=== PATIENT | female | born 1935 | race Caucasian/White ===

== ENCOUNTER 2017-06-22 19:15 | Inpatient (IN) | payer OTHER ==
[~2017-06-22] VITALS: Ht 165.1 cm; Wt 59.0 kg
[~2017-06-22 19:15] MED LIST: ACETAMINOPHEN325 M1 PO; ACYCLOVIR800 MG PO; AMLODIPINE BESYL5 MG PO; LOSARTAN POTAS100 MG PO; SYNTHROID50 MCG PO
[2017-06-22 20:22] LABS: BASOPHIL COUNT 0.1 K/uL (0-0.1); EOSINOPHIL (%) 0.1 % (0-5); IMMATURE GRANULOCYTE (%) 0.3 % (0.0-0.7); INSTRUMENT ABS NEUTROPHIL CT 11.9 K/uL; LYMPHOCYTE COUNT 0.9 K/uL (1.0-2.8); MCH 31.9 PG (29.0-34.0); MCV 91.3 FL (83-99); MEAN PLAT.VOLUME 10.3 uM^3 (9.5-12.4); MONOCYTE (%) 4.9 % (3-12); MONOCYTE COUNT 0.7 K/uL (0-0.8); NEUTROPHIL (%) 87.8 % (45-76); NEUTROPHIL COUNT 11.9 K/uL (1.8-6.4); PLATELET COUNT 291 K/uL (156-360); RBC DIS.WIDTH-CV 12.7 % (11.8-14.6); RBC DIS.WIDTH-SD 42.5 % (39-53); RED BLOOD COUNT 5.26 M/uL (3.80-5.20); WHITE BLOOD COUNT 13.6 K/uL (4.1-10.2)
[2017-06-22 20:26] LABS: CHLORIDE 101 mEq/L (99-109); POTASSIUM 4.4 mEq/L (3.7-5.4); SODIUM 134 mEq/L (136-147)
[2017-06-22 20:27] LABS: MAGNESIUM 2.1 mg/dL (1.3-2.7)
[2017-06-22 20:28] LABS: GLUCOSE 154 mg/dL (70-99)
[2017-06-22 20:29] LABS: ANION GAP 13 MEQ/L (2-14)
[2017-06-22 20:32] LABS: GFR ESTIMATE (CALCULATED) > 59 mL/min/
[2017-06-22 20:33] LABS: UREA NITROGEN (BUN) 13 mg/dL (9-23)
[2017-06-22 20:39] LABS: TROP-I INTERPRETATION NEGATIVE; TROPONIN-I < 0.01 ng/mL (0.0-0.30)
[2017-06-22] MEDS ORDERED: CELEBREX100 MG PO (21:13)
[2017-06-22] MEDS ORDERED: ASPIR 8181 M1 PO (21:13)
[2017-06-22] MEDS ORDERED: COLON CLEANSE (21:15)
[2017-06-22] MEDS ORDERED: DAILY VALUE1 EACH PO (21:15)
[2017-06-22] MEDS ORDERED: BIOTIN1 MG PO (21:16)
[2017-06-22] MEDS ORDERED: ASCORBIC ACID100 MG PO (21:16)
[2017-06-22] MEDS ORDERED: FISH OIL 1,0001 EAC7 PO (21:16)
[2017-06-22 22:30] VITALS: BP 132/67
[2017-06-23 04:15] VITALS: BP 116/69
[2017-06-23 07:41] VITALS: BP 98/55
[2017-06-23 11:07] VITALS: BP 120/74
[2017-06-23 16:08] VITALS: BP 118/73
[2017-06-23 19:20] VITALS: BP 110/67
[2017-06-24] VITALS (7 sets, daily range): BP systolic 104–151; BP diastolic 61–72
[2017-06-25 04:09] VITALS: BP 158/80
[2017-06-25 06:56] VITALS: BP 122/81
[2017-06-25 09:30] LABS: HEMATOCRIT 48.5 % (36.0-46.0); MCHC 33.4 G/DL (30.0-36.0); MCV 92.7 FL (83-99); MEAN PLAT.VOLUME 9.7 uM^3 (9.5-12.4); PLATELET COUNT 303 K/uL (156-360); RBC DIS.WIDTH-CV 12.1 % (11.8-14.6); RBC DIS.WIDTH-SD 41.7 % (39-53); RED BLOOD COUNT 5.23 M/uL (3.80-5.20); WHITE BLOOD COUNT 8.9 K/uL (4.1-10.2)
[2017-06-25 10:02] LABS: ANION GAP 8 MEQ/L (2-14); CHLORIDE 99 MEQ/L (99-109); GFR ESTIMATE (CALCULATED) > 59 mL/min/; GLUCOSE 137 mg/dL (70-99); POTASSIUM 4.5 MEQ/L (3.7-5.4); SAMPLE HEMOLYSIS CHECK 0; SAMPLE ICTERIC CHECK 0; SAMPLE LIPEMIA CHECK 0; SODIUM 132 MEQ/L (136-147); UREA NITROGEN (BUN) 15 mg/dL (9-23)
[2017-06-25 10:59] LABS: DIGOXIN 2.7 ng/mL (0.8-2.0)
[2017-06-25 11:17] VITALS: BP 102/63
[2017-06-25] MEDS ORDERED: ELIQUIS2.5 MG PO (13:01)
[2017-06-25] MEDS ORDERED: Tylenol Extra Streng PO (13:03)
[2017-06-25] MEDS ORDERED: LOPRESSOR25 MG PO (13:10)
[2017-06-25 15:14] VITALS: BP 105/60
== END 2017-06-25 16:38 | DRG 310 ==
LOC: EME 19:15 → EDOF 21:21 → 4EAST 21:21 → ENRESERV 21:32 → 4EAST 22:26 → ENPENDDIS 06-25 → 4EAST 06-25 16:38
PROVIDERS: Emergency Medicine; Internal Medicine Cardiovascular Disease
DX: I48.91 Unspecified atrial fibrillation (principal); W01.0XXA Fall on same level from slipping, tripping and stumbling without subsequent striking against object, initial encounter; E03.9 Hypothyroidism, unspecified; M41.9 Scoliosis, unspecified; I10 Essential (primary) hypertension; S00.531A Contusion of lip, initial encounter; Y92.009 Unspecified place in unspecified non-institutional (private) residence as the place of occurrence of the external cause; Z86.73 Personal history of transient ischemic attack (TIA), and cerebral infarction without residual deficits; Z90.2 Acquired absence of lung [part of]; S62.615A Displaced fracture of proximal phalanx of left ring finger, initial encounter for closed fracture; M19.90 Unspecified osteoarthritis, unspecified site; I07.1 Rheumatic tricuspid insufficiency
CPT/HCPCS: 70450; 70486; 71010; 73130; 80048; 80162; 83735; 83880; 84439; 84443; 84484; 85025; 85027; 90686; 93005; 93306; 99281; 99285; J1160; J1650; J3475

== ENCOUNTER 2017-08-05 10:27 | Inpatient (IN) | payer OTHER ==
[~2017-08-05] VITALS: Ht 162.6 cm; Wt 57.8 kg
[~2017-08-05 10:27] MED LIST changes: +ASCORBIC ACID100 MG PO; +ASPIR 8181 M1 PO; +BIOTIN1 MG PO; +CELEBREX100 MG PO; +COLON CLEANSE; +DAILY VALUE1 EACH PO; +ELIQUIS2.5 MG PO; +FISH OIL 1,0001 EAC7 PO; +LOPRESSOR25 MG PO; +Tylenol Extra Streng PO
[2017-08-05 10:53] LABS: BASOPHIL COUNT 0.1 K/uL (0-0.1); EOSINOPHIL (%) 5.9 % (0-5); EOSINOPHIL COUNT 0.5 K/uL (0-0.3); HEMATOCRIT 52.7 % (36.0-46.0); IMMATURE GRANULOCYTE (%) 0.7 % (0.0-0.7); IMMATURE GRANULOCYTE COUNT 0.1 K/uL; INSTRUMENT ABS NEUTROPHIL CT 5.2 K/uL; LYMPHOCYTE COUNT 1.7 K/uL (1.0-2.8); MCH 31.6 PG (29.0-34.0); MCHC 33.4 G/DL (30.0-36.0); MCV 94.6 FL (83-99); MEAN PLAT.VOLUME 10.3 uM^3 (9.5-12.4); MONOCYTE (%) 9.5 % (3-12); MONOCYTE COUNT 0.8 K/uL (0-0.8); NEUTROPHIL COUNT 5.2 K/uL (1.8-6.4); PLATELET COUNT 356 K/uL (156-360); RBC DIS.WIDTH-SD 45.5 % (39-53); RED BLOOD COUNT 5.57 M/uL (3.80-5.20); WHITE BLOOD COUNT 8.3 K/uL (4.1-10.2)
[2017-08-05 10:58] LABS: INTER. NORMALIZED RATIO 1.3; PROTHROMBIN TIME 14.6 SEC (10.2-12.9)
[2017-08-05 11:00] LABS: PTT 34.4 SEC (25-37)
[2017-08-05 11:04] LABS: AMYLASE 51 IU/L (1-118); CHLORIDE 106 mEq/L (99-109); POTASSIUM 4.3 mEq/L (3.7-5.4); SODIUM 143 mEq/L (136-147)
[2017-08-05 11:06] LABS: GLUCOSE 172 mg/dL (70-99)
[2017-08-05 11:07] LABS: ANION GAP 12 MEQ/L (2-14)
[2017-08-05 11:09] LABS: SERUM ETHYL ALCOHOL < 10 mg/dL
[2017-08-05 11:10] LABS: GFR ESTIMATE (CALCULATED) > 59 mL/min/; UREA NITROGEN (BUN) 11 mg/dL (9-23)
[2017-08-05 11:13] LABS: LIPASE 16 U/L (1.0-51.0)
[2017-08-05 11:19] LABS: TROP-I INTERPRETATION NEGATIVE; TROPONIN-I 0.04 ng/mL (0.0-0.30)
[2017-08-05 12:04] LABS: DIGOXIN 1.9 ng/mL (0.8-2.0)
[2017-08-05] MEDS ORDERED: BENADRYL ALLERG25 MG PO (14:41)
[2017-08-05] MEDS ORDERED: MEDPASS PO (14:43)
[2017-08-05] MEDS ORDERED: DIGOXIN125 MCG PO (14:45)
[2017-08-05 14:46] LABS: ADD MIUA? YES; BILIRUBIN NEGATIVE; BLOOD NEGATIVE; COLOR YELLOW ((YELLOW)); GLUCOSE (STRIP) NEGATIVE; KETONES 5; LEUKOCYTES SMALL; NITRITE NEGATIVE; PROTEIN (STRIP) NEGATIVE; UROBILINOGEN 0.2 MG/DL (0.2-1.0)
[2017-08-05] MEDS ORDERED: DIGOXIN250 MCG PO (14:46)
[2017-08-05 14:50] LABS: BACTERIA RARE /HPF; EPITHELIAL CELLS RARE /HPF; MUCUS TRACE /LPF; RED BLOOD CELLS 0-5 /HPF (0-5); UCUL ADDED? NO; WHITE BLOOD CELLS 0-5 /HPF (0-5)
[2017-08-05 14:55] LABS: AMPHETAMINE NEGATIVE (500 ng/mL); BARBITURATES NEGATIVE (200 ng/mL); BENZODIAZEPINES NEGATIVE (150 ng/mL); COCAINE NEGATIVE (150 ng/mL); INTERNAL CONTROLS VALID? YES; METHADONE NEGATIVE (200 ng/mL); METHAMPHETAMINE NEGATIVE (500 ng/mL); OPIATES (MORPHINE) NEGATIVE (100 ng/mL); OXYCODONE NEGATIVE (100 ng/mL); PHENCYCLIDINE NEGATIVE (25 ng/mL); PROPOXYPHENE NEGATIVE (300 ng/mL); THC CANNABINOIDS NEGATIVE (50 ng/mL); TRICYCLIC ANTIDEPRESSANTS NEGATIVE (300 ng/mL)
[2017-08-05 15:04] LABS: SPECIFIC GRAVITY 1.058 (1.000-1.030)
[2017-08-05 15:52] VITALS: BP 185/97
[2017-08-05 19:24] LABS: TROP-I INTERPRETATION NEGATIVE; TROPONIN-I 0.03 ng/mL (0.0-0.30)
[2017-08-05 19:32] VITALS: BP 181/90
[2017-08-05 21:00] VITALS: BP 168/75
[2017-08-06 00:35] VITALS: BP 138/86
[2017-08-06 04:04] VITALS: BP 153/107
[2017-08-06 06:54] LABS: ALKALINE PHOSPHATASE 47 IU/L (3-129); ANION GAP 8 MEQ/L (2-14); CHLORIDE 108 MEQ/L (99-109); GFR ESTIMATE (CALCULATED) > 59 mL/min/; HDL CHOLESTEROL 25 MG/DL (Desirable>=50); LDL CHOLESTEROL 95 mg/dL (Desirable<100); NON-HDL CHOLESTEROL 122 mg/dL (Desirable<160); POTASSIUM 4.3 MEQ/L (3.7-5.4); SAMPLE HEMOLYSIS CHECK 0; SAMPLE ICTERIC CHECK 0; SAMPLE LIPEMIA CHECK 0; SODIUM 145 MEQ/L (136-147); TOTAL BILIRUBIN 0.8 MG/DL (0.0-1.0); TOTAL CHOLESTEROL 147 mg/dL (Desirable<200); TRIGLYCERIDES 134 MG/DL (Normal: <150); UREA NITROGEN (BUN) 10 mg/dL (9-23)
[2017-08-06 07:01] LABS: GLUCOSE 114 mg/dL (70-99)
[2017-08-06 07:05] VITALS: BP 140/75
[2017-08-06 07:10] LABS: HEMATOCRIT 43.5 % (36.0-46.0); MCH 31.6 PG (29.0-34.0); MCHC 33.1 G/DL (30.0-36.0); MCV 95.6 FL (83-99); MEAN PLAT.VOLUME 10.8 uM^3 (9.5-12.4); PLATELET COUNT 312 K/uL (156-360); RBC DIS.WIDTH-CV 13.2 % (11.8-14.6); RBC DIS.WIDTH-SD 46.6 % (39-53); RED BLOOD COUNT 4.55 M/uL (3.80-5.20); WHITE BLOOD COUNT 9.5 K/uL (4.1-10.2)
[2017-08-06 07:17] LABS: Estimated Average Glucose 131 mg/dL (70-123); HEMOGLOBIN A1c (GLYCOHEMOGLOB) 6.2 % HGB (Below 5.7)
[2017-08-06 11:13] VITALS: BP 148/79
[2017-08-06 15:25] VITALS: BP 139/74
[2017-08-06] MEDS ORDERED: TYLENOL EXTRA500 MG PO (16:01)
[2017-08-06 20:37] VITALS: BP 132/64; BP 144/72
[2017-08-07 04:12] VITALS: BP 138/81
[2017-08-07 07:30] VITALS: BP 140/80
[2017-08-07 11:08] VITALS: BP 128/78
[2017-08-07 17:28] VITALS: BP 148/86
[2017-08-07 19:55] VITALS: BP 145/76
[2017-08-07 23:35] VITALS: BP 157/88
[2017-08-08] VITALS (7 sets, daily range): BP systolic 128–160; BP diastolic 80–95
[2017-08-09] VITALS (8 sets, daily range): BP systolic 133–187; BP diastolic 72–96
[2017-08-10 04:03] VITALS: BP 171/81
[2017-08-10 08:00] VITALS: BP 162/83
[2017-08-10 08:05] LABS: ANION GAP 7 MEQ/L (2-14); CHLORIDE 108 MEQ/L (99-109); GFR ESTIMATE (CALCULATED) > 59 mL/min/; GLUCOSE 119 mg/dL (70-99); POTASSIUM 3.5 MEQ/L (3.7-5.4); SAMPLE HEMOLYSIS CHECK 0; SAMPLE ICTERIC CHECK 0; SAMPLE LIPEMIA CHECK 0; SODIUM 142 MEQ/L (136-147); UREA NITROGEN (BUN) 4 mg/dL (9-23)
[2017-08-10 12:00] VITALS: BP 142/59
[2017-08-10 16:11] VITALS: BP 155/88
[2017-08-10 19:33] VITALS: BP 168/84
[2017-08-11] VITALS: BP 176/89
[2017-08-11 04:09] VITALS: BP 169/87
[2017-08-11 08:00] VITALS: BP 159/90
[2017-08-11 12:00] VITALS: BP 160/99
[2017-08-11] MEDS ORDERED: MIRTAZAPINE15 MG PO (12:28)
[2017-08-11] MEDS ORDERED: PRAVASTATIN SOD80 MG PO (12:29)
[2017-08-11] MEDS ORDERED: ASPIR-LOW81 MG PO (12:29)
[2017-08-11] MEDS ORDERED: CLONIDINE1 EACH TD (12:29)
[2017-08-11 20:00] VITALS: BP 144/92
[2017-08-12 00:20] VITALS: BP 174/110
[2017-08-12 08:41] VITALS: BP 153/90
[2017-08-12 15:15] VITALS: BP 130/80
[2017-08-13 00:26] VITALS: BP 180/100
[2017-08-13 02:30] VITALS: BP 164/86
[2017-08-13 07:18] VITALS: BP 141/85
== END 2017-08-13 12:03 | DRG 69 ==
LOC: EME → EDBD 10:27 → EME 10:27 → 5SOUTH 13:17 → EDOF 13:17 → ENRESERV 14:40 → 5SOUTH 15:27
PROVIDERS: Emergency Medicine; Family Medicine
DX: G45.9 Transient cerebral ischemic attack, unspecified (principal); R41.82 Altered mental status, unspecified; R47.01 Aphasia; R47.02 Dysphasia; R47.1 Dysarthria and anarthria; E86.0 Dehydration; E87.6 Hypokalemia; I10 Essential (primary) hypertension; I48.91 Unspecified atrial fibrillation; R82.4 Acetonuria; R11.2 Nausea with vomiting, unspecified; R26.2 Difficulty in walking, not elsewhere classified; J45.909 Unspecified asthma, uncomplicated; E03.9 Hypothyroidism, unspecified; M41.9 Scoliosis, unspecified; Z82.0 Family history of epilepsy and other diseases of the nervous system; Z82.3 Family history of stroke; Z86.73 Personal history of transient ischemic attack (TIA), and cerebral infarction without residual deficits; Z91.81 History of falling; Z90.2 Acquired absence of lung [part of]
CPT/HCPCS: 70450; 70496; 70498; 70551; 71010; 74230; 80048; 80053; 80061; 80162; 81003; 82150; 83036; 83690; 84484; 85025; 85027; 85610; 85730; 86850; 86900; 86901; 92523 GN; 92611 GN; 93005; 97530 GP; 99281; 99285; G0480; J1644; J2405; J7030; J7040

== ENCOUNTER 2018-01-08 10:54 | Emergency (ER) | payer OTHER ==
[~2018-01-08] VITALS: Ht 162.6 cm; Wt 55.0 kg
[~2018-01-08 10:54] MED LIST changes: +ASPIR-LOW81 MG PO; +BENADRYL ALLERG25 MG PO; +CLONIDINE1 EACH TD; +DIGOXIN125 MCG PO; +DIGOXIN250 MCG PO; +MEDPASS PO; +MIRTAZAPINE15 MG PO; +PRAVASTATIN SOD80 MG PO; +TYLENOL EXTRA500 MG PO
[2018-01-08 11:32] LABS: HEMATOCRIT 47.1 % (36.0-46.0); HEMOGLOBIN 16.1 G/DL (11.9-15.5); MCH 32.1 PG (29.0-34.0); MCHC 34.2 G/DL (30.0-36.0); MCV 93.8 FL (83-99); PLATELET COUNT 302 K/uL (156-360); RBC DIS.WIDTH-SD 44.1 % (39-53); RED BLOOD COUNT 5.02 M/uL (3.80-5.20); WHITE BLOOD COUNT 15.1 K/uL (4.1-10.2)
[2018-01-08 11:39] LABS: ALBUMIN 3.7 g/dL (3.2-4.8)
[2018-01-08 11:40] LABS: CHLORIDE 102 mEq/L (99-109); POTASSIUM 4.8 mEq/L (3.7-5.4); SODIUM 139 mEq/L (136-147)
[2018-01-08 11:42] LABS: GLUCOSE 214 mg/dL (70-99); TOTAL PROTEIN 6.9 g/dL (6.4-8.3)
[2018-01-08 11:44] LABS: TOTAL BILIRUBIN 1.2 mg/dL (0.0-1.0)
[2018-01-08 11:45] LABS: ALKALINE PHOSPHATASE 70 IU/L (3-129)
[2018-01-08 11:46] LABS: CREATININE 0.8 mg/dL (0.6-1.3); GFR ESTIMATE (CALCULATED) > 59 mL/min/
[2018-01-08 11:47] LABS: AST (GOT) 56 IU/L (2-34); UREA NITROGEN (BUN) 9 mg/dL (9-23)
[2018-01-08 11:48] LABS: ALT (GPT) 44 IU/L (3-49)
[2018-01-08 12:34] LABS: TROP-I INTERPRETATION NEGATIVE; TROPONIN-I 0.05 ng/mL (0.0-0.30)
[2018-01-08 13:10] LABS: APPEARANCE CLOUDY ((CLEAR)); BILIRUBIN NEGATIVE; BLOOD LARGE; COLOR AMBER ((YELLOW)); GLUCOSE (STRIP) 50; KETONES NEGATIVE; LEUKOCYTES LARGE; NITRITE NEGATIVE; PROTEIN (STRIP) >=500
[2018-01-08 13:37] LABS: BACTERIA RARE /HPF; EPITHELIAL CELLS 1+ /HPF; MUCUS NONE SEEN /LPF; UCUL ADDED? YES; WHITE BLOOD CELLS TNTC /HPF (0-5)
[2018-01-08] MEDS ORDERED: LEVAQUIN500 MG PO (13:49)
[2018-01-08 15:13] VITALS: BP 171/106
== END 2018-01-08 16:01 | disposition home or self-care (01) ==
LOC: EME 10:54
DX: N39.0 Urinary tract infection, site not specified (principal); I48.91 Unspecified atrial fibrillation; Z79.01 Long term (current) use of anticoagulants; J45.909 Unspecified asthma, uncomplicated; I10 Essential (primary) hypertension; Z88.5 Allergy status to narcotic agent
CPT/HCPCS: 71045; 80053; 81003; 84484; 85027; 87086; 93005; 99281; 99285; J7040

== ENCOUNTER 2018-01-20 18:08 | Inpatient (IN) | payer OTHER ==
[~2018-01-20] VITALS: Ht 152.4 cm; Wt 54.2 kg
[~2018-01-20 18:08] MED LIST changes: +LEVAQUIN500 MG PO
[2018-01-20 19:32] LABS: BASOPHIL (%) 0.5 % (0-1); BASOPHIL COUNT 0.1 K/uL (0-0.1); EOSINOPHIL (%) 0.3 % (0-5); EOSINOPHIL COUNT 0.1 K/uL (0-0.3); HEMATOCRIT 48.1 % (36.0-46.0); HEMOGLOBIN 16.3 G/DL (11.9-15.5); IMMATURE GRANULOCYTE (%) 0.5 % (0.0-0.7); LYMPHOCYTE (%) 4.6 % (15-42); LYMPHOCYTE COUNT 0.8 K/uL (1.0-2.8); MCH 31.8 PG (29.0-34.0); MCHC 33.9 G/DL (30.0-36.0); MCV 93.8 FL (83-99); MONOCYTE COUNT 0.9 K/uL (0-0.8); NEUTROPHIL (%) 89.1 % (45-76); NEUTROPHIL COUNT 15.7 K/uL (1.8-6.4); PLATELET COUNT 319 K/uL (156-360); RBC DIS.WIDTH-CV 12.6 % (11.8-14.6); RBC DIS.WIDTH-SD 43.7 % (39-53); RED BLOOD COUNT 5.13 M/uL (3.80-5.20); WHITE BLOOD COUNT 17.6 K/uL (4.1-10.2)
[2018-01-20 19:40] LABS: ALBUMIN 3.9 g/dL (3.2-4.8)
[2018-01-20 19:41] LABS: CHLORIDE 103 mEq/L (99-109); POTASSIUM 4.8 mEq/L (3.7-5.4); SODIUM 139 mEq/L (136-147)
[2018-01-20 19:43] LABS: GLUCOSE 162 mg/dL (70-99); TOTAL PROTEIN 6.6 g/dL (6.4-8.3)
[2018-01-20 19:45] LABS: TOTAL BILIRUBIN 0.9 mg/dL (0.0-1.0)
[2018-01-20 19:46] LABS: ALKALINE PHOSPHATASE 77 IU/L (3-129)
[2018-01-20 19:47] LABS: CREATININE 0.8 mg/dL (0.6-1.3); GFR ESTIMATE (CALCULATED) > 59 mL/min/
[2018-01-20 19:48] LABS: AST (GOT) 61 IU/L (2-34); UREA NITROGEN (BUN) 12 mg/dL (9-23)
[2018-01-20 19:49] LABS: ALT (GPT) 49 IU/L (3-49)
[2018-01-20 19:50] LABS: LIPASE 8 U/L (1.0-51.0)
[2018-01-20 19:56] LABS: DIGOXIN 1.8 ng/mL (0.8-2.0); TROP-I INTERPRETATION NEGATIVE; TROPONIN-I 0.04 ng/mL (0.0-0.30)
[2018-01-20 22:39] LABS: APPEARANCE TURBID ((CLEAR)); COLOR YELLOW ((YELLOW)); LEUKOCYTES MODERATE; NITRITE NEGATIVE
[2018-01-20 22:40] LABS: BILIRUBIN SMALL; BLOOD LARGE; GLUCOSE (STRIP) NEGATIVE; KETONES NEGATIVE; PH, URINE 7.5 (5-8); PROTEIN (STRIP) 30; UROBILINOGEN 0.2 MG/DL (0.2-1.0)
[2018-01-20 22:43] LABS: RED BLOOD CELLS 0-5 /HPF (0-5); WHITE BLOOD CELLS TNTC /HPF (0-5)
[2018-01-20 22:44] LABS: BACTERIA 1+ /HPF; EPITHELIAL CELLS RARE /HPF; UCUL ADDED? YES
[2018-01-20 22:46] LABS: MUCUS RARE /LPF
[2018-01-20] MEDS ORDERED: CHILD ASPIRIN81 M1 PO (22:48)
[2018-01-20] MEDS ORDERED: PRAVACHOL80 MG PO (22:48)
[2018-01-20] MEDS ORDERED: LOPRESSOR25 MG PO (22:49)
[2018-01-20] MEDS ORDERED: MIRTAZAPINE30 MG PO (22:50)
[2018-01-20] MEDS ORDERED: COLACE100 MG PO (22:50)
[2018-01-20] MEDS ORDERED: PHILLIPS'400 MG/5 M PO (22:51)
[2018-01-20] MEDS ORDERED: CLOTRIMAZOLE15 GM TP (22:51)
[2018-01-20] MEDS ORDERED: TRIAMCINOLONE A15 GM TP (22:52)
[2018-01-21 04:26] VITALS: BP 130/93
[2018-01-21 06:47] LABS: HEMATOCRIT 44.7 % (36.0-46.0); HEMOGLOBIN 15.2 G/DL (11.9-15.5); MCH 31.7 PG (29.0-34.0); MCV 93.3 FL (83-99); PLATELET COUNT 293 K/uL (156-360); RBC DIS.WIDTH-CV 12.9 % (11.8-14.6); RBC DIS.WIDTH-SD 44.4 % (39-53); RED BLOOD COUNT 4.79 M/uL (3.80-5.20); WHITE BLOOD COUNT 12.5 K/uL (4.1-10.2)
[2018-01-21 07:09] LABS: CHLORIDE 106 MEQ/L (99-109); CREATININE 0.6 MG/DL (0.6-1.3); GFR ESTIMATE (CALCULATED) > 59 mL/min/; GLUCOSE 158 mg/dL (70-99); SODIUM 141 MEQ/L (136-147); UREA NITROGEN (BUN) 8 mg/dL (9-23)
[2018-01-21 11:23] VITALS: BP 99/58
[2018-01-21 11:32] VITALS: BP 110/62
[2018-01-21 15:12] LABS: HEMATOCRIT 43.7 % (36.0-46.0); HEMOGLOBIN 14.5 G/DL (11.9-15.5); MCV 94.4 FL (83-99)
[2018-01-21 15:27] VITALS: BP 130/70
[2018-01-21 17:50] LABS: CANDIDA DNA PROBE NEGATIVE; GARDNERELLA DNA PROBE NEGATIVE; TRICHOMONAS DNA PROBE NEGATIVE
[2018-01-21 19:02] VITALS: BP 157/78
[2018-01-21 23:10] VITALS: BP 132/70
[2018-01-22 03:20] VITALS: BP 119/70
[2018-01-22 06:35] LABS: CHLORIDE 112 MEQ/L (99-109); CREATININE 0.6 MG/DL (0.6-1.3); GFR ESTIMATE (CALCULATED) > 59 mL/min/; GLUCOSE 141 mg/dL (70-99); SODIUM 143 MEQ/L (136-147); UREA NITROGEN (BUN) 6 mg/dL (9-23)
[2018-01-22 07:33] VITALS: BP 140/82
[2018-01-22 15:25] VITALS: BP 131/68
[2018-01-22 23:32] VITALS: BP 138/71
[2018-01-23 06:44] LABS: BASOPHIL (%) 1.3 % (0-1); BASOPHIL COUNT 0.1 K/uL (0-0.1); EOSINOPHIL (%) 5.6 % (0-5); EOSINOPHIL COUNT 0.4 K/uL (0-0.3); HEMOGLOBIN 13.2 G/DL (11.9-15.5); IMMATURE GRANULOCYTE (%) 0.4 % (0.0-0.7); LYMPHOCYTE (%) 18.1 % (15-42); LYMPHOCYTE COUNT 1.4 K/uL (1.0-2.8); MCH 31.9 PG (29.0-34.0); MCV 96.6 FL (83-99); MONOCYTE (%) 8.5 % (3-12); MONOCYTE COUNT 0.7 K/uL (0-0.8); NEUTROPHIL (%) 66.1 % (45-76); NEUTROPHIL COUNT 5.1 K/uL (1.8-6.4); PLATELET COUNT 251 K/uL (156-360); RBC DIS.WIDTH-CV 13.4 % (11.8-14.6); RBC DIS.WIDTH-SD 48.2 % (39-53); RED BLOOD COUNT 4.14 M/uL (3.80-5.20); WHITE BLOOD COUNT 7.7 K/uL (4.1-10.2)
[2018-01-23 08:02] VITALS: BP 151/93
[2018-01-23 15:59] LABS: APPEARANCE CLEAR ((CLEAR)); BILIRUBIN NEGATIVE; BLOOD NEGATIVE; COLOR YELLOW ((YELLOW)); GLUCOSE (STRIP) NEGATIVE; KETONES NEGATIVE; LEUKOCYTES TRACE; NITRITE NEGATIVE; PROTEIN (STRIP) NEGATIVE; SPECIFIC GRAVITY 1.018 (1.000-1.030); UROBILINOGEN 0.2 MG/DL (0.2-1.0)
[2018-01-23 16:06] LABS: BACTERIA NONE SEEN /HPF; EPITHELIAL CELLS NONE SEEN /HPF; MUCUS TRACE /LPF; RED BLOOD CELLS 0-5 /HPF (0-5); WHITE BLOOD CELLS 0-5 /HPF (0-5)
[2018-01-23 16:26] VITALS: BP 142/78
[2018-01-23] MEDS ORDERED: METRONIDAZOLE500 MG PO (16:29)
[2018-01-23] MEDS ORDERED: DIGOXIN125 MCG PO (16:30)
[2018-01-23] MEDS ORDERED: VITAMIN D31000 UNI2 PO (16:32)
[2018-01-23] MEDS ORDERED: CEFTIN500 MG PO (16:33)
[2018-01-23 23:20] VITALS: BP 168/81
[2018-01-24 08:58] VITALS: BP 166/93
== END 2018-01-24 13:44 | disposition home or self-care (01) | DRG 386 ==
LOC: EME 18:08 → EDOF 01-21 00:25 → 2EAST 01-21 00:25 → ENRESERV 01-21 00:28 → 2EAST 01-21 03:59
PROVIDERS: Emergency Medicine; Internal Medicine; Obstetrics & Gynecology
DX: K51.50 Left sided colitis without complications (principal); I48.91 Unspecified atrial fibrillation; I10 Essential (primary) hypertension; E78.5 Hyperlipidemia, unspecified; E03.9 Hypothyroidism, unspecified; I48.2 Chronic atrial fibrillation; J98.11 Atelectasis; E66.9 Obesity, unspecified; R53.83 Other fatigue; N93.9 Abnormal uterine and vaginal bleeding, unspecified; K57.30 Diverticulosis of large intestine without perforation or abscess without bleeding; G30.9 Alzheimer's disease, unspecified; F02.80 Dementia in other diseases classified elsewhere, unspecified severity, without behavioral disturbance, psychotic disturbance, mood disturbance, and anxiety; Z90.2 Acquired absence of lung [part of]; Z86.73 Personal history of transient ischemic attack (TIA), and cerebral infarction without residual deficits; Z82.3 Family history of stroke
CPT/HCPCS: 70450; 71046; 74177; 76856; 80048; 80053; 80162; 81003; 83605; 83690; 84484; 85014; 85018; 85025; 85027; 87086; 87480; 87493; 87506; 87510; 87660; 93005; 99281; 99284; J0360; J0696; J1650; J7040; S0030